=== PATIENT | male | born 1995 | race Hispanic/Latino ===

== ENCOUNTER 2020-05-22 14:00 | Emergency (ER) | payer BC, SELFPAY ==
[2020-05-22] MEDS ORDERED: NA CHLORIDE 0.9% 1,000 ML ONE (14:49)
[2020-05-22] MEDS ORDERED: ONDANSETRON 4 MG/2 ML VIAL ONE (14:49)
[2020-05-22] MEDS ORDERED: KETOROLAC 30 MG/ML INJ ONE (14:49)
[2020-05-22 15:05] LABS: Absolute Lymphocytes (CBC) 2.5 K/uL (0.7-4.9); Basophils % 0.5 % (0-1.3); Hematocrit 46.6 % (39.6-49.0); MPV 8.2 fL (7.6-11.3); RBC Red Blood Cell Count 5.43 M/uL (4.33-5.43)
[2020-05-22 15:09] LABS: Urine Blood NEGATIVE (NEG); Urine Glucose NEGATIVE (NEG); Urine Protein NEGATIVE (NEG); Urine pH 6.5 (5.0-7.0)
[2020-05-22 15:20] LABS: Albumin 4.6 g/dL (3.4-5.0); Bilirubin Total 1.5 mg/dL (0.2-1.0); Potassium 3.6 mmol/L (3.5-5.1); Protein, Total 9.2 g/dL (6.4-8.2)
--- NOTE | 2020-05-22 15:32 | RAD REPORT ---
EXAM DESCRIPTION: CT - Stone Protocol - 05/22/2020 3:14 pm CLINICAL HISTORY: Flank pain. Abd pain;Pain COMPARISON: No comparisons TECHNIQUE: Axial images were obtained without oral or IV contrast. Lack of contrast limits solid org an and vascular assessment. The [id number] spans the entirety of the system partially obscuring uppermost abdomen and lung bases. Coronal reformatted images were obtained and reviewed. All CT scans are performed using dose optimization technique as appropriate and may include automated exposure control or mA/KV adjustment according to patient size. FINDINGS: The lower lung dennison are clear. Imaged portions of the liver and spleen show no suspicious findings on non-contrast imaging. The panc reas and adrenal glands are normal. No pathologic lymphadenopathy in the abdomen or pelvis. No urinary tract stones or obstructive uropathy. No bowel obstruction, free air, free fluid or abscess. Normal appendix noted. No significant bony abnormality. IMPRESSION: No urinary tract stones or obstructive uropathy.
--- NOTE | 2020-05-22 15:40 | EDPHYS ---
Physician Documentation [facility] Name: Rodney Bobby Age: 24 yrs Sex: Male : 1995 Arrival Date: 05/22/2020 Time: 14:01 Bed 6 Private MD: ED Physician Aldo Mantilla HPI: 05/22 15:05 This 24 yrs old Male presents to ER via Ambulatory with complaints of kidney louise Stone. 15:05 The patient presents with abdominal pain in the lower abdomen, in the left lower louise quadrant. Onset: The symptoms/episode began/occurred just prior to arrival, this morning. The patient complains of pain in the left mid back. The pain radiates to the left low back and left mid back. Onset: The symptoms/episode began/occurred just prior to arrival, this morning. Modifying factors: The symptoms are alleviated by nothing. the symptoms are aggravated by nothing. The patient presents with scrotal pain, of the left side, tenderness. Modifying factors: The symptoms are alleviated by nothing, the symptoms are aggravated by nothing. Associated signs and symptoms: The patient has no apparent associated signs or symptoms. The symptoms are described as constant, sharp. Severity of pain: At its worst the pain was moderate in the emergency department the pain is unchanged. The patient has not experienced similar symptoms in the past. Historical: - Allergies: 14:37 PENICILLINS; ph - PMHx: 14:37 Hypertension; ph - PSHx: 14:37 None; ph - Immunization history:: Adult Immunizations unknown. - Social history:: Smoking status: Patient reports the use of cigarette tobacco products, smokes one-half pack cigarettes per day. - Family history:: not pertinent. ROS: 15:05 Constitutional: Negative for fever, chills, and weight loss, Eyes: Negative for injury, louise pain, redness, and discharge, ENT: Negative for injury, pain, and discharge, Neck: Negative for injury, pain, and swelling, Cardiovascular: Negative for chest pain, palpitations, and edema, Respiratory: Negative for shortness of breath, cough, wheezing, and pleuritic chest pain, : Negative for injury, bleeding, discharge, and swelling, MS/Extremity: Negative for injury and deformity, Skin: Negative for injury, rash, and discoloration, Neuro: Negative for headache, weakness, numbness, tingling, and seizure, Psych: Negative for depression, anxiety, suicide ideation, homicidal ideation, and hallucinations, Allergy/Immunology: Negative for hives, rash, and allergies, Endocrine: Negative for neck swelling, polydipsia, polyuria, polyphagia, and marked weight changes, Hematologic/Lymphatic: Negative for swollen nodes, abnormal bleeding, and unusual bruising. 15:05 Abdomen/GI: Positive for abdominal pain. 15:05 : Positive for urinary symptoms, urinary frequency, testicular pain of the left testicle. Exam: 15:05 Constitutional: This is a well developed, well nourished patient who is awake, alert, louise and in no acute distress. Head/Face: Normocephalic, atraumatic. Eyes: Pupils equal round and reactive to light, extra-ocular motions intact. Lids and lashes normal. Conjunctiva and sclera are non-icteric and not injected. Cornea within normal limits. Periorbital areas with no swelling, redness, or edema. ENT: Nares patent. No nasal discharge, no septal abnormalities noted. Tympanic membranes are normal and external auditory canals are clear. Oropharynx with no redness, swelling, or masses, exudates, or evidence of obstruction, uvula midline. Mucous membranes moist. Neck: Trachea midline, no thyromegaly or masses palpated, and no cervical lymphadenopathy. Supple, full range of motion without nuchal rigidity, or vertebral point tenderness. No Meningismus. Chest/axilla: Normal chest wall appearance and motion. Nontender with no deformity. No lesions are appreciated. Cardiovascular: Regular rate and rhythm with a normal S1 and S2. No gallops, murmurs, or rubs. Normal PMI, no JVD. No pulse deficits. Respiratory: Lungs have equal breath sounds bilaterally, clear to auscultation and percussion. No rales, rhonchi or wheezes noted. No increased work of breathing, no retractions or nasal flaring. Abdomen/GI: Soft, non-tender, with normal bowel sounds. No distension or tympany. No guarding or rebound. No evidence of tenderness throughout. Back: No spinal tenderness. No costovertebral tenderness. Full range of motion. Skin: Warm, dry with normal turgor. Normal color with no rashes, no lesions, and no evidence of cellulitis. MS/ Extremity: Pulses equal, no cyanosis. Neurovascular intact. Full, normal range of motion. Neuro: Awake and alert, GCS 15, oriented to person, place, time, and situation. Cranial nerves II-XII grossly intact. Motor strength 5/5 in all extremities. Sensory grossly intact. Cerebellar exam normal. Normal gait. Psych: Awake, alert, with orientation to person, place and time. Behavior, mood, and affect are within normal limits. 15:05 : CVA tenderness, is absent, Male external genitalia: Circumcision noted. Bladder: is normal, Sexual behavior: the patient is sexually active, and reports a single partner. Vital Signs: 14:34 BP 158 / 112; Pulse 103; Resp 18; Temp 98.3; Pulse Ox 100% on R/A; Weight 120.2 kg; ph Height 5 ft. 11 in. (180.34 cm); Pain 0/10; 15:21 Pulse 89; Resp 16; Pulse Ox 100% ; sv 14:34 Body Mass Index 36.96 (120.20 kg, 180.34 cm) ph MDM: 14:34 Patient medically screened. [facility] 15:09 Data reviewed: vital signs, nurses notes, lab test result(s), CBC, electrolytes, [facility] hepatic panel, urinalysis, radiologic studies, CT scan. Data interpreted: monitoring and evaluation advisor: not applicable for this patient encounter. rate is 103 beats/min, rhythm is regular, Pulse oximetry: is not applicable for this patient encounter. on room air is 100 %. Counseling: I had a detailed discussion with the patient and/or guardian regarding: the historical points, exam findings, and any diagnostic results supporting the discharge/admit diagnosis, lab results, radiology results, the need for outpatient follow up, for definitive care, a urologist. ED course: push fluids, follow up , return if needed. 05/22 14:36 Order name: CBC with Diff; Complete Time: 15:30 [facility] 05/22 14:36 Order name: Comprehensive Metabolic Panel; Complete Time: 15:30 [facility] 05/22 14:36 Order name: CT Stone Protocol; Complete Time: 15:32 [facility] 05/22 14:58 Order name: Urine Dipstick--Ancillary (enter results); Complete Time: 15:30 05/22 14:36 Order name: Urine Dipstick-Ancillary (obtain specimen); Complete Time: 15:21 [facility] Administered Medications: 14:45 Drug: NS 0.9% 1000 ml Route: IV; Rate: 1 bolus; Site: right antecubital; hb 15:00 Follow up: Response: No adverse reaction; IV Status: Completed infusion; IV Intake: hb 1000ml 14:45 Drug: TORadol 30 mg Route: IVP; Site: right antecubital; hb 15:00 Follow up: Response: No adverse reaction hb 14:45 Drug: Zofran (Ondansetron) 4 mg Route: IVP; Site: right antecubital; hb 15:00 Follow up: Response: No adverse reaction hb Disposition: 05/22/20 15:39 Discharged to Home. Impression: Essential (primary) hypertension, Hydronephrosis with renal and ureteral calculous obstruction - no hydro, no stone seen, Abdominal tenderness. - Condition is Stable. - Discharge Instructions: Abdominal Pain, Adult, Hypertension, Kidney Stones, Kidney Stones, Hbqv-[id number], Abdominal Pain, Adult, Ccdw-be-Vats, Hypertension, Nxvj-[id number]. - Prescriptions for Tylenol- Codeine #3 300-30 mg Oral Tablet - take 2 tablets by ORAL route every 6 hours As needed; 20 tablet. Zofran 4 mg Oral Tablet - take 1 tablet by ORAL route every 12 hours As needed; 20 tablet. Flomax 0.4 mg Oral Capsule, Sust. Release 24 hr - take 1 capsule by ORAL route once daily 1/2 hour following the same meal each day; 30 capsule. Bactrim DS 800- 160 mg Oral Tablet - take 1 tablet by ORAL route every 12 hours for 7 days; 14 tablet. - Medication Reconciliation Form, Thank You Letter, Antibiotic Education, Prescription Opioid Use form. - Follow up: Private Physician; When: 2 - 3 days; Reason: Recheck today's complaints, Continuance of care, Re-evaluation by your physician. Follow up: Rodney Keller; When: 2 - 3 days; Reason: Recheck today's complaints, Re-evaluation by your physician. - Problem is new. - Symptoms have improved. Signatures: Dispatcher [employer] Alod Henderson MD MD cha Hall, Patricia, RN RN Cecily Castillo RN RN Corrections: (The following items were deleted from the chart) 15:53 15:39 05/22/2020 15:39 Discharged to Home. Impression: Essential (primary) hb hypertensionHydronephrosis with renal and ureteral calculous obstruction - no hydro, no stone seen; Abdominal tenderness. Condition is Stable. Discharge Instructions: Kidney Stones, Kidney Stones, Pyqo-xc-Sihc, Hydronephrosis. Prescriptions for Tylenol-Codeine #3 300-30 mg Oral Tablet - take 2 tablets by ORAL route every 6 hours As needed; 20 tablet, Zofran 4 mg Oral Tablet - take 1 tablet by ORAL route every 12 hours As needed; 20 tablet, Flomax 0.4 mg Oral Capsule, Sust. Release 24 hr - take 1 capsule by ORAL route once daily 1/2 hour following the same meal each day; 30 capsule, Bactrim DS 800-160 mg Oral Tablet - take 1 tablet by ORAL route every 12 hours for 7 days; 14 tablet. and Forms are Medication Reconciliation Form, Thank You Letter, Antibiotic Education, Prescription Opioid Use. Follow up: Private Physician; When: 2 - 3 days; Reason: Recheck today's complaints, Continuance of care, Re-evaluation by your physician. Follow up: Rodney Keller; When: 2 - 3 days; Reason: Recheck today's complaints, Re-evaluation by your physician. Problem is new. Symptoms have improved. louise
--- NOTE | 2020-05-22 15:40 | ER ---
Nurse's Notes [facility] Name: Rodney Bobby Age: 24 yrs Sex: Male : 1995 Arrival Date: 05/22/2020 Time: 14:01 Bed 6 Private MD: Diagnosis: Hydronephrosis with renal and ureteral calculous obstruction-no hydro, no stone seen;Essential (primary) hypertension;Abdominal tenderness Presentation: 05/22 14:34 Chief complaint: Patient states: " I think I passed a kidney stone this morning but I ph feel like there is another one there, and I haven't been able to pee for the past hour and a half but I feel like I need to." Reports pain to L mid back, nausea this morning. Coronavirus screen: Client denies travel out of the [place] in the last 14 days. At this time, the client does not indicate any symptoms associated with coronavirus-19. Ebola Screen: No symptoms or risks identified at this time. Initial Sepsis Screen: Does the patient meet any 2 criteria? No. Patient's initial sepsis screen is negative. Does the patient have a suspected source of infection? No. Patient's initial sepsis screen is negative. Risk Assessment: Do you want to hurt yourself or someone else? Patient reports no desire to harm self or others. Onset of symptoms was May 22, 2020. 14:34 Method Of Arrival: Ambulatory ph 14:34 Acuity: ZACHARY 3 ph Historical: - Allergies: 14:37 PENICILLINS; ph - PMHx: 14:37 Hypertension; ph - PSHx: 14:37 None; ph - Immunization history:: Adult Immunizations unknown. - Social history:: Smoking status: Patient reports the use of cigarette tobacco products, smokes one-half pack cigarettes per day. - Family history:: not pertinent. Screenin:00 Abuse screen: Denies threats or abuse. Denies injuries from another. Nutritional hb screening: No deficits noted. Tuberculosis screening: No symptoms or risk factors identified. Fall Risk None identified. Assessment: 14:45 General: Appears in no apparent distress. Behavior is calm, cooperative. Pain: Pain hb currently is 6 out of 10 on a pain scale. Neuro: Level of Consciousness is awake, alert, obeys commands, Oriented to person, place, time, situation. Cardiovascular: Capillary refill < 3 seconds Patient's skin is warm and dry. Respiratory: Respiratory effort is even, unlabored, Respiratory pattern is regular, symmetrical. GI: Reports lower abdominal pain, nausea. : Reports pain in lower back with urination. EENT: No signs and/or symptoms were reported regarding the EENT system. Derm: Skin is pink, warm \\T\\ dry. Musculoskeletal: No signs and/or symptoms reported regarding the musculoskeletal system. 15:27 Reassessment: Patient appears in no apparent distress at this time. Patient and/or hb family updated on plan of care and expected duration. Pain level reassessed. Patient is alert, oriented x 3, equal unlabored respirations, skin warm/dry/pink. Vital Signs: 14:34 BP 158 / 112; Pulse 103; Resp 18; Temp 98.3; Pulse Ox 100% on R/A; Weight 120.2 kg; ph Height 5 ft. 11 in. (180.34 cm); Pain 0/10; 15:21 Pulse 89; Resp 16; Pulse Ox 100% ; sv 14:34 Body Mass Index 36.96 (120.20 kg, 180.34 cm) ph ED Course: 14:01 Patient arrived in ED. ds1 14:34 Aldo Mantilla MD is Attending Physician. louise 14:37 Triage completed. ph 14:37 Arm band placed on Patient placed in an exam room, on a stretcher. ph 14:45 Inserted saline lock: 20 gauge in right antecubital area, using aseptic technique. hb Blood collected. 15:00 Patient has correct armband on for positive identification. Bed in low position. Call hb light in reach. 15:14 CT Stone Protocol In Process Unspecified. EDMS 15:21 CT completed. Patient tolerated procedure well. Patient moved back from CT. bq 15:21 Awaiting lab results, Awaiting radiology results. sv 15:24 Cecily Pina, CASSIE is Primary Nurse. hb 15:33 Rodney Keller MD is Referral Physician. louise 15:52 No provider procedures requiring assistance completed. IV discontinued, intact, hb bleeding controlled, No redness/swelling at site. Administered Medications: 14:45 Drug: NS 0.9% 1000 ml Route: IV; Rate: 1 bolus; Site: right antecubital; hb 15:00 Follow up: Response: No adverse reaction; IV Status: Completed infusion; IV Intake: hb 1000ml 14:45 Drug: TORadol 30 mg Route: IVP; Site: right antecubital; hb 15:00 Follow up: Response: No adverse reaction hb 14:45 Drug: Zofran (Ondansetron) 4 mg Route: IVP; Site: right antecubital; hb 15:00 Follow up: Response: No adverse reaction hb Intake: 15:00 IV: 1000ml; Total: 1000ml. hb Outcome: 15:39 Discharge ordered by MD. gil 15:52 Discharged to home ambulatory. hb 15:52 Condition: stable 15:52 Discharge instructions given to patient, Instructed on discharge instructions, follow up and referral plans. medication usage, Demonstrated understanding of instructions, follow-up care, medications, Prescriptions given X 4. 15:53 Patient left the ED. hb Signatures: Dispatcher [employer] EDJoy Winter, RN RN Aldo Hernandez MD MD cha Quilty, Betty bq Sanford, Demi ds1 Anabel Landrum RN RN Cecily Pina RN RN hb Corrections: (The following items were deleted from the chart) 15:23 15:21 BP 125 / 81; Pulse 74bpm; Resp 16bpm; Pulse Ox 99%; sv sv
[2020-05-22 16:00] VITALS: BP 158/112; TEMP 98.3; O2SAT 100
== END 2020-05-22 15:53 | disposition home or self-care (01) ==
LOC: ER 14:00
DX: N13.2 Hydronephrosis with renal and ureteral calculous obstruction (principal); I10 Essential (primary) hypertension; F17.210 Nicotine dependence, cigarettes, uncomplicated; Z88.0 Allergy status to penicillin
CPT/HCPCS: 36415; 74176; 76377; 80053; 81003; 85025; 96374; 96375; 99284; J2405; J7030